=== PATIENT | male | born 1945 | race Caucasian/White ===

== ENCOUNTER 2021-06-09 08:12 | Day surgery (SDC) | payer MEDICARE, OTHER ==
[~2021-06-09] VITALS: Ht 185.4 cm; Wt 100.9 kg
[~2021-06-09 08:12] MED LIST: ASPI81CH PO; ASPIR 8181 M1 PO; CATAPRES0.1 MG PO; CEPH500 PO; HYDRA25 PO; Hytrin2 MG PO; LOSA25 PO; LOSA50 PO; METAMUCIL POWD798 GM PO; NAPR500 PO; NEBI10 PO; OMEP20ER PO; ROSU10TA PO; SULTRIDS PO; TAMS.4ER PO; VITAMIN D325 MC3 PO; Vitamin B-Comp1 EACH PO; Zanaflex2 M1 PO
== END 2021-06-09 10:55 | disposition home or self-care (01) ==
LOC: ORSCSDS 08:12
PROVIDERS: Surgery
PROC: 0DJD8ZZ Inspection of Lower Intestinal Tract, Via Natural or Artificial Opening Endoscopic (ICD-10-PCS; principal; 2021-06-09 09:45)
DX: Z12.11 Encounter for screening for malignant neoplasm of colon (principal); Z86.010 Personal history of colon polyps; K57.30 Diverticulosis of large intestine without perforation or abscess without bleeding; K21.9 Gastro-esophageal reflux disease without esophagitis; E78.5 Hyperlipidemia, unspecified; I10 Essential (primary) hypertension; Z79.899 Other long term (current) drug therapy; Z79.82 Long term (current) use of aspirin; Z87.891 Personal history of nicotine dependence
CPT/HCPCS: J2704; J7120